=== PATIENT | male | born 1960 | race African-American/Black ===

== ENCOUNTER 2023-11-12 21:53 | Emergency (ER) | payer SELFPAY ==
[2023-11-12 22:04] VITALS: BP 156/94; RESP 18; TEMP 97.8; BMI 20.5
[2023-11-12 23:07] LABS: HEMATOCRIT 38.8 % (35.4-49); HEMOGLOBIN 12.5 G/dL (11.7-16.9); MCH 23.7 pg (25.7-33.7); MCHC 32.3 g/dl (32.0-35.9); MEAN CELL VOLUME 73.4 fl (80-96); MEAN PLT VOLUME 8.3 fl (7.5-11.1); PLATELET COUNT 229.6 10^3/uL (134-434); RBC 5.29 10^6/uL (4.00-5.60); RDW 16.6 % (11.9-15.9); WHITE BLOOD COUNT 4.4 10^3/uL (4.0-10.8)
[2023-11-12 23:26] LABS: ALBUMIN 3.9 g/dl (3.4-5.0); BILIRUBIN,TOTAL 0.5 mg/dl (0.2-1); CALCIUM 9.5 mg/dl (8.5-10.1); POTASSIUM 4.5 mmol/L (3.5-5.1); TOT PROT 6.6 g/dl (6.4-8.2)
[2023-11-12] MEDS ORDERED: INSULIN REGULAR HUMAN 100 UNITS/ML *VIAL IVPUSH ONE (23:32)
[2023-11-12 23:38] LABS: PLATELET ESTIMATE ADEQUATE
[2023-11-13] MEDS ORDERED: INSULIN REGULAR HUMAN 100 UNITS/ML *VIAL ONE ×2 (00:29→00:32)
[2023-11-13] MEDS: INSULIN REGULAR HUMAN 100 UNITS/ML *VIAL* (FOR IVP) IVPUSH ONE (00:31)
[2023-11-13] MEDS: INSULIN REGULAR 100 UNITS in SODIUM CHLORIDE 99 ML IVPB SCH (01:07)
[2023-11-13 01:19] LABS: VENOUS BASE EXCESS 1.7 mmol/L (-2-2); VENOUS O2 SATURATION 43.4 % (70-80); VENOUS PCO2 59.2 mmHg (38-52); VENOUS PH 7.318 (7.310-7.410)
[2023-11-13 01:22] LABS: URINE APPEARANCE CLEAR; URINE BILIRUBIN NEGATIVE (NEGATIVE); URINE COLOR YELLOW; URINE GLUCOSE (UA) 3+ (NEGATIVE); URINE KETONE NEGATIVE (NEGATIVE); URINE LEUK ESTERASE NEGATIVE (NEGATIVE); URINE NITRITE NEGATIVE (NEGATIVE); URINE PROTEIN NEGATIVE (NEGATIVE); URINE UROBILINOGEN 0.2 mg/dL (0.2-1.0)
[2023-11-13] MEDS: SODIUM CHLORIDE 1,000 ML IV STA ×2 (02:10→02:46)
[2023-11-13 04:48] VITALS: PULSE 77
[2023-11-13 05:43] LABS: VENOUS BASE EXCESS -0.4 mmol/L (-2-2); VENOUS O2 SATURATION 24.6 % (70-80); VENOUS PCO2 59.4 mmHg (38-52); VENOUS PH 7.283 (7.310-7.410)
[2023-11-13 06:40] LABS: BILIRUBIN,TOTAL 0.5 mg/dL (0.2-1); BLOOD UREA NITROGEN 14.6 mg/dL (7-18); CALCIUM 8.2 mg/dL (8.5-10.1); CREATININE 0.7 mg/dL (0.55-1.3); POTASSIUM 4.3 mmol/L (3.5-5.1); TOT PROT 5.9 g/dl (6.4-8.2)
== END 2023-11-13 07:19 | disposition home or self-care (01) ==
LOC: FER 21:53
PROC: 3E033GC Introduction of Other Therapeutic Substance into Peripheral Vein, Percutaneous Approach (ICD-10-PCS; principal; 2023-11-13)
PROC: 3E0337Z Introduction of Electrolytic and Water Balance Substance into Peripheral Vein, Percutaneous Approach (ICD-10-PCS; 2023-11-13)
PROC: 3E0337Z Introduction of Electrolytic and Water Balance Substance into Peripheral Vein, Percutaneous Approach (ICD-10-PCS; 2023-11-13)
DX: E10.65 Type 1 diabetes mellitus with hyperglycemia (principal); R53.1 Weakness; M79.10 Myalgia, unspecified site; R07.9 Chest pain, unspecified
CPT/HCPCS: 36415; 71045-TC-FY; 80053; 81003; 82010; 82803; 82962; 83605; 84484; 85027; 87040; 87086; 93005; 99285-25

== ENCOUNTER 2024-08-27 05:45 | Emergency (ER) | payer OTHER ==
[2024-08-27 06:03] VITALS: TEMP 98.5; BMI 18.8
[2024-08-27 06:48] VITALS: PULSE 82
[2024-08-27 07:13] LABS: CHLORIDE 100 mmol/L (98-107); POTASSIUM 5.3 mmol/L (3.5-5.1); SODIUM 134 mmol/L (136-145)
[2024-08-27 07:15] LABS: ANION GAP 6 mmol/L (4-13); BLOOD UREA NITROGEN 13.3 mg/dL (7-18); CO2 29 mmol/L (21-32)
[2024-08-27 07:18] LABS: SGOT/AST 80 U/L (15-37); SGPT/ALT 148 U/L (13-61)
[2024-08-27 07:19] LABS: CREATININE 0.8 mg/dL (0.55-1.3)
[2024-08-27 07:20] LABS: BILIRUBIN,TOTAL 0.5 mg/dL (0.2-1); TOT PROT 6.4 g/dl (6.4-8.2)
[2024-08-27 07:21] LABS: ALK PHOS 108 U/L (45-117)
[2024-08-27 07:23] LABS: N-TERMINAL BNP 91.8 pg/ml (5-125)
[2024-08-27 07:45] LABS: ABSOLUTE IMMATURE GRANULOCYTES 0.01 x10^3/uL (0.0-0.031); BASOPHILS # 0.03 x10^3/uL (0.01-0.08); EOSINOPHIL % 6.5 % (0.8-7.0); EOSINOPHILS # 0.26 x10^3/uL (0.04-0.54); HEMOGLOBIN 10.8 g/dL (13.7-17.5); MCHC 30.9 g/dl (32.3-36.5); MEAN CELL VOLUME 73.8 fl (79.0-92.2); MEAN PLT VOLUME 9.9 fl (9.4-12.4); MONOCYTE # 0.24 x10^3/uL (0.30-0.82); PLATELET COUNT # 243 x10^3/uL (163-337); RDW 14.1 % (12.2-16.4)
[2024-08-27 08:17] LABS: GLUCOSE,RANDOM 404 mg/dL (74-106)
[2024-08-27] MEDS ORDERED: ACETAMINOPHEN 325 MG TABLET (FP) ONE (08:29)
[2024-08-27] MEDS: ACETAMINOPHEN 500 MG TABLET (FP) PO ONE (08:32)
[2024-08-27 08:33] LABS: URINE APPEARANCE CLEAR; URINE BILIRUBIN NEGATIVE (NEGATIVE); URINE COLOR YELLOW; URINE GLUCOSE (UA) 3+ (NEGATIVE); URINE KETONE NEGATIVE (NEGATIVE); URINE LEUK ESTERASE NEGATIVE (NEGATIVE); URINE NITRITE NEGATIVE (NEGATIVE); URINE PROTEIN TRACE (NEGATIVE); URINE UROBILINOGEN 0.2 mg/dL (0.2-1.0)
[2024-08-27] MEDS ORDERED: INSULIN REGULAR HUMAN 100 UNITS/ML *VIAL ONE (08:43)
[2024-08-27] MEDS: INSULIN REGULAR HUMAN 100 UNITS/ML *VIAL IVPUSH ONE (08:54)
[2024-08-27 09:45] VITALS: BP 155/89; RESP 18
[2024-08-27 19:45] LABS: HIV INTERPRETATION NEGATIVE (NEGATIVE)
[2024-08-27 19:46] LABS: HCV DIAGNOSTIC IN-HOUSE W/RFLX NON-REACTIVE (NONREACTIVE)
== END 2024-08-27 11:00 | disposition home or self-care (01) ==
LOC: JER 05:45
PROC: 3E033GC Introduction of Other Therapeutic Substance into Peripheral Vein, Percutaneous Approach (ICD-10-PCS; principal; 2024-08-27)
DX: R60.0 Localized edema (principal); R20.2 Paresthesia of skin; R06.02 Shortness of breath
CPT/HCPCS: 0241U-QW; 36415; 71045-TC-FY; 80053; 81003; 82962; 83880; 85025; 86803; 87077; 87086; 87389; 93005; 93010; 99285-25